=== PATIENT | male | born 1980 | race Caucasian/White ===

== ENCOUNTER → 2018-08-27 | Outpatient (CLI) | payer BC ==
--- NOTE | 2018-08-27 17:15 | RADIOLOGY IMAGING REPORT ---
FACILITY: [facility] - [place] PATIENT NAME: Marla Hawk : 1980 MR: [id number] V: [id number] EXAM DATE: ORDERING PHYSICIAN: SHRUTHI JUNE TECHNOLOGIST: Location: [facility] - [place] Patient: Marla Hawk : 1980 Visit/Account:[id number] Date of Sevice: 08/27/2018 ADDENDUM #1 Results were called to Dr. SHRUTHI JUNE on 08/27/2018 5:20 PM. Report Dictated By: Reno Stewart at 08/27/2018 5:20 PM Report E-Signed By: Reno Stewart at 08/27/2018 5:20 PM ORIGINAL REPORT ABDOMEN/PELVIS W/O CONTRAST COMPARISON: None. HISTORY: Right flank pain and hematuria with no history of kidney stones.. TECHNIQUE: Axial CT abdomen and pelvis without intravenous contrast. Coronal and sagittal reformats . One of the following dose optimization techniques was utilized in the performance of this exam: auto mated exposure control; adjustment of the mA and/or kV according to patient size; or use of iterative reconstruction technique. Specific details can be referenced in the facility's radiology CT exam op erational policy. CONTRAST: No intravenous contrast. FINDINGS: Lack of IV contrast limits assessment of the liver and other solid organs for subtle pathology. Withi n these limitations, the following observations are made: LUNG BASES: Unremarkable. LIVER: Unremarkable. BILIARY: Unremarkable gallbladder. No intra-or extrahepatic bile duct dilatat ion. SPLEEN: Unremarkable. Normal size. Homogeneous density. PANCREAS: Unremarkable. Limited assessment by noncontrast CT. No focal enlargement to suggest the p resence of a mass. No evidence of acute pancreatitis. ADRENALS: Unremarkable. KIDNEYS: There is a 2 x 3 x 3 mm mildly obstructive stone at the right ureteropelvic junction (measu ring 450 Hounsfield unit density) with mild pelvocaliectasis. There are numerous additional punctate, approximately 1 mm or less stones in the right kidney, probably 7 right total based on the coronal r eformats. At least one approximately 1 mm stone in the left kidney upper pole, nonobstructive. No lef t hydronephrosis or stones. No perinephric fluid or fat stranding. GI/MESENTERY: Unremarkable. No visible mass, obstruction, or bowel wall thickening. VASCULAR: Minimal aortic calcification. LYMPH NODES: Unremarkable. No significantly enlarged lymph nodes. BLADDER: Unremarkable. No visible focal wall thickening, appreciable lesion, or calculus. PELVIC ORGANS: Unremarkable. BONES: Unremarkable.No acute-appearing fracture or suspicious osseous lesion. OTHER: Negative. IMPRESSION: 1. Mildly obstructive 3 mm stone at the right ureteropelvic junction, with mild right pelvocaliectas is. Numerous additional punctate, 1 mm or less size nonobstructive stones in the right kidney. 2. 1 mm nonobstructive stone in the left kidney. Report Dictated By: Reno Stewart at 08/27/2018 5:02 PM Report E-Signed By: Reno Stewart at 08/27/2018 5:11 PM WSN:[id number]
== END ==
LOC: CT 16:36
PROVIDERS: ATTEND Nurse Practitioner Family
DX: N20.0 Calculus of kidney (principal); N13.2 Hydronephrosis with renal and ureteral calculous obstruction; R31.9 Hematuria, unspecified
CPT/HCPCS: 74176

== ENCOUNTER 2018-08-29 15:32 | Emergency (ER) | payer BC ==
[2018-08-29 15:42] VITALS: BP 129/88
--- NOTE | 2018-08-29 15:42 | ER Report ---
History and Physical Time Seen By MD: 15:42 HPI/ROS CHIEF COMPLAINT: Flank pain HISTORY OF PRESENT ILLNESS: This is a 38 year male who presents to the emergency department for right flank pain. Patient was seen at urgent care, and diagnosed with a kidney stone on the right side 2 days ago. Patient has had continued pain. Patient decided to come in for further evaluation as the pain on the right lower abdomen seemed to intensify. When the patient arrived he did provide us with a urine sample and suddenly had relief of all of his symptoms. Patient states he is feeling much better. There was some hematuria, we did strain the urine there was a small blood clot but no identifiable stone. Patient at this time denies fevers, chills no nausea at this time. REVIEW OF SYSTEMS: Respiratory: No cough, no dyspnea. Cardiovascular: No chest pain, no palpitations. Gastrointestinal: As above. Musculoskeletal: As above. Allergies: Coded Allergies: No Known Drug Allergies (Unverified , 08/29/18) Home Meds No Active Prescriptions or Reported Meds Past Medical/Surgical History The patient has no significant past medical or surgical history. Reviewed Nurses Notes: Yes Constitutional Vital Sign - Last 24 Hours 08/29/18 08/29/18 15:42 16:12 Temp 97.5 Pulse 83 74 Resp 24 B/P (MAP) 129/88 Pulse Ox 97 96 O2 Delivery Room Air Physical Exam General Appearance: The patient is alert, has no immediate need for airway protection and no current signs of toxicity. Eyes: Pupils equal and round no injection. Respiratory: Chest is non tender, lungs are clear to auscultation. Cardiac: regular rate and rhythm. Gastrointestinal: Abdomen is soft and non tender, no masses, bowel sounds normal . Musculoskeletal: Neck: Neck is supple and non tender.No CVA tenderness. Extremities have full range of motion and are non tender. Skin: No rashes or lesions. DIFFERENTIAL DIAGNOSIS: After history and physical exam differential diagnosis was considered for renal colic. Medical Decision Making ED Course/Re-evaluation ED Course The patient was admitted to room. A history of physical obtained. Differential diagnoses were considered. Upon arrival the patient gave us a urine sample, and immediately had relief of symptoms. We discussed this and ultimately decided to send the patient home, the patient was in agreement with the plan of care. I did recommend returning to the ER should his pain return, if pain medication at home did not help with recurrent pain or if the pain seemed different. The patient had no other questions or concerns at this time. The patient was discharged this time. Decision to Disposition Date: Aug 29, 2018 Decision to Disposition Time: 16:03 Depart Departure Latest Vital Signs Vital Signs Date Time Temp Pulse Resp B/P (MAP) Pulse Ox O2 Delivery O2 Flow Rate FiO2 08/29/18 16:12 74 96 08/29/18 15:42 97.5 24 129/88 Room Air Impression: Primary Impression: Renal colic on right side Condition: Improved Disposition: HOME OR SELF-CARE New Scripts No Active Prescriptions or Reported Meds Patient Instructions: Renal Colic (ED) Additional Instructions: With the amount of relief after providing us with a urine sample, I do believe that you have passed the stone. If the pain returns or you feel you are unable to produce and adequate amount of urine, please return to the ED for reevaluation. Drink plenty of fluids. Get plenty of rest. Follow up with your PCP next week with any other concerns. JJ WIN CIVIL DRAFTING TECHNICIAN-BC Aug 29, 2018 15:42
[2018-08-29] MEDS ORDERED: ONDA4TAB97 PO (20:42)
[2018-08-29] MEDS ORDERED: HYDR-653 PO (20:42)
[2018-08-29] MEDS ORDERED: KET10 PO (20:42)
== END 2018-08-29 16:12 | disposition home or self-care (01) ==
LOC: ER 15:41
DX: N23 Unspecified renal colic (principal)
CPT/HCPCS: 99282

== ENCOUNTER 2018-08-29 17:54 | Observation (INO) | payer BC ==
[~2018-08-29] VITALS: Ht 177.8 cm; Wt 66.2 kg
[2018-08-29] MEDS ORDERED: NS(*) 0.9% 1000 ML BAG 1,000 ML IV ONE (18:01)
[2018-08-29] MEDS ORDERED: ONDANSETRON 4 MG/2 ML VIAL IVP ONE (18:05)
[2018-08-29] MEDS ORDERED: fentaNYL CITR 100 MCG/2 ML AMP IVP ONE (18:05)
[2018-08-29 18:08] LABS: PLATELET COUNT, AUTOMATED 219 K/uL (150-450)
--- NOTE | 2018-08-29 18:16 | ER Report ---
History and Physical Time Seen By MD: 18:06 Hx. of Stated Complaint: right sided flank pain HPI/ROS CHIEF COMPLAINT: Right flank pain HISTORY OF PRESENT ILLNESS: This is a 38-year-old male who presents to the emergency department for right flank pain. The patient was seen and evaluated roughly an hour to 2 hours ago, had significant relief of his right flank pain when he was here previously, felt the kidney stone had passed, was sent home. Patient returned with increased right flank pain, severe nausea and vomiting. No dysuria. Patient has pale and holding his right side. No chest pain or shortness of breath. No rashes. No diarrhea. REVIEW OF SYSTEMS: Constitutional: No fever, no chills. Eyes: No discharge. ENT: No sore throat. Cardiovascular: No chest pain, no palpitations. Respiratory: No cough, no shortness of breath. Gastrointestinal: As above. Genitourinary: No hematuria. Musculoskeletal: As above. Skin: No rashes. Neurological: No headache. Allergies: Coded Allergies: No Known Drug Allergies (Unverified , 08/29/18) Home Meds Reported Medications Ondansetron Hcl (ZOFRAN) 4 Mg Tablet, 4 MG PO Q12H, TAB 08/29/18 Ketorolac Tromethamine (KETOROLAC TROMETHAMINE) 10 Mg Tab, 10 MG PO Q6H, TAB 08/29/18 Hydrocodone Bit/Acetaminophen (NORCO 5-325 TABLET) 1 Each Tablet, 1 EACH PO, TAB 08/29/18 Past Medical/Surgical History The patient has no significant past medical or surgical history. Reviewed Nurses Notes: Yes Hx Substance Use Disorder: No Hx Alcohol Use: No Constitutional Vital Sign - Last 24 Hours 08/29/18 08/29/18 08/29/18 08/29/18 17:58 18:00 18:15 18:45 Temp 98.7 Pulse 99 101 88 92 Resp 28 B/P (MAP) 148/101 144/91 (108) Pulse Ox 99 100 98 96 O2 Delivery Room Air Physical Exam General Appearance: The patient is alert, has no immediate need for airway protection and no signs of toxicity, pale and shaky. Eyes: Pupils equal and round no pallor or injection. ENT, Mouth: Mucous membranes are moist. Respiratory: There are no retractions, lungs are clear to auscultation. Cardiovascular: Regular rate and rhythm. Gastrointestinal: Abdomen is soft and non tender, no masses, bowel sounds normal. Neurological: Alert and oriented 4. Moving all extremities. Following all commands. No focal neuro deficits. Skin: Warm and dry, no rashes. Musculoskeletal: Neck is supple non tender. Mild right-sided CVA tenderness. Extremities are nontender, nonswollen and have full range of motion. DIFFERENTIAL DIAGNOSIS: After history and physical exam differential diagnosis was considered for urinary tract infection, pyelonephritis, kidney stone with obstruction. Medical Decision Making Data Points Result Diagram: 08/29/18180208/29/181802 Laboratory Hematology Test 08/29/18 18:03 08/29/18 19:22 Red Blood Count 5.11 M/uL (4.00-5.60) Mean Corpuscular Volume 91.1 fL (80.0-96.0) Mean Corpuscular Hemoglobin 31.2 pg (26.0-33.0) Mean Corpuscular Hemoglobin Concent 34.2 g/dL (32.0-36.0) Red Cell Distribution Width 12.1 % (11.5-14.5) Mean Platelet Volume 8.9 fL (7.2-11.1) Neutrophils (%) (Auto) 83.8 % (39.4-72.5) Lymphocytes (%) (Auto) 10.3 % (17.6-49.6) Monocytes (%) (Auto) 5.1 % (4.1-12.4) Eosinophils (%) (Auto) 0.5 % (0.4-6.7) Basophils (%) (Auto) 0.3 % (0.3-1.4) Nucleated RBC Relative Count (auto) 0.0 /100WBC Neutrophils # (Auto) 10.9 K/uL (2.0-7.4) Lymphocytes # (Auto) 1.3 K/uL (1.3-3.6) Monocytes # (Auto) 0.7 K/uL (0.3-1.0) Eosinophils # (Auto) 0.1 K/uL (0.0-0.5) Basophils # (Auto) 0.0 K/uL (0.0-0.1) Nucleated RBC Absolute Count (auto) 0.00 K/uL Sodium Level 130 mmol/L (137-145) Potassium Level 3.4 mmol/L (3.5-5.0) Chloride Level 93 mmol/L (98-107) Carbon Dioxide Level 23 mmol/L (22-30) Blood Urea Nitrogen 13 mg/dl (9-21) Creatinine 1.20 mg/dl (0.66-1.25) Glomerular Filtration Rate Calc > 60.0 Random Glucose 115 mg/dl (75-110) Calcium Level 9.5 mg/dl (8.4-10.2) Total Bilirubin 0.6 mg/dl (0.2-1.3) Aspartate Amino Transf (AST/SGOT) 26 U/L (0-35) Alanine Aminotransferase (ALT/SGPT) 35 U/L (0-56) Alkaline Phosphatase 54 U/L (0-126) Total Protein 7.5 g/dl (6.3-8.2) Albumin 4.5 g/dl (3.5-5.0) Urine Color Yellow Urine Clarity Clear Urine pH 5.0 pH (4.8-9.5) Urine Specific Loyal 1.024 Urine Protein Negative mg/dL (NEGATIVE) Urine Glucose (UA) Negative mg/dL (NEGATIVE) Urine Ketones 20 mg/dL (NEGATIVE) Urine Blood Large (NEGATIVE) Urine Nitrite Negative (NEGATIVE) Urine Bilirubin Negative (NEGATIVE) Urine Urobilinogen Negative mg/dL (0.2-1.9) Urine Leukocyte Esterase Negative (NEGATIVE) Urine RBC 11 /HPF (0-2/HPF) Urine WBC 2 /HPF (0-5/HPF) Urine Squamous Epithelial Cells None /LPF (</=FEW) Urine Bacteria Negative /HPF (NONE-FEW) Urine Mucus Few /HPF (NONE-FEW) Chemistry Test 08/29/18 18:03 08/29/18 19:22 White Blood Count 13.0 k/uL (4.5-11.0) Red Blood Count 5.11 M/uL (4.00-5.60) Hemoglobin 15.9 g/dL (14.0-18.0) Hematocrit 46.6 % (42.0-52.0) Mean Corpuscular Volume 91.1 fL (80.0-96.0) Mean Corpuscular Hemoglobin 31.2 pg (26.0-33.0) Mean Corpuscular Hemoglobin Concent 34.2 g/dL (32.0-36.0) Red Cell Distribution Width 12.1 % (11.5-14.5) Platelet Count 219 K/uL (150-450) Mean Platelet Volume 8.9 fL (7.2-11.1) Neutrophils (%) (Auto) 83.8 % (39.4-72.5) Lymphocytes (%) (Auto) 10.3 % (17.6-49.6) Monocytes (%) (Auto) 5.1 % (4.1-12.4) Eosinophils (%) (Auto) 0.5 % (0.4-6.7) Basophils (%) (Auto) 0.3 % (0.3-1.4) Nucleated RBC Relative Count (auto) 0.0 /100WBC Neutrophils # (Auto) 10.9 K/uL (2.0-7.4) Lymphocytes # (Auto) 1.3 K/uL (1.3-3.6) Monocytes # (Auto) 0.7 K/uL (0.3-1.0) Eosinophils # (Auto) 0.1 K/uL (0.0-0.5) Basophils # (Auto) 0.0 K/uL (0.0-0.1) Nucleated RBC Absolute Count (auto) 0.00 K/uL Glomerular Filtration Rate Calc > 60.0 Calcium Level 9.5 mg/dl (8.4-10.2) Total Bilirubin 0.6 mg/dl (0.2-1.3) Aspartate Amino Transf (AST/SGOT) 26 U/L (0-35) Alanine Aminotransferase (ALT/SGPT) 35 U/L (0-56) Alkaline Phosphatase 54 U/L (0-126) Total Protein 7.5 g/dl (6.3-8.2) Albumin 4.5 g/dl (3.5-5.0) Urine Color Yellow Urine Clarity Clear Urine pH 5.0 pH (4.8-9.5) Urine Specific Loyal 1.024 Urine Protein Negative mg/dL (NEGATIVE) Urine Glucose (UA) Negative mg/dL (NEGATIVE) Urine Ketones 20 mg/dL (NEGATIVE) Urine Blood Large (NEGATIVE) Urine Nitrite Negative (NEGATIVE) Urine Bilirubin Negative (NEGATIVE) Urine Urobilinogen Negative mg/dL (0.2-1.9) Urine Leukocyte Esterase Negative (NEGATIVE) Urine RBC 11 /HPF (0-2/HPF) Urine WBC 2 /HPF (0-5/HPF) Urine Squamous Epithelial Cells None /LPF (</=FEW) Urine Bacteria Negative /HPF (NONE-FEW) Urine Mucus Few /HPF (NONE-FEW) Urinalysis Test 08/29/18 19:22 Urine Color Yellow Urine Clarity Clear Urine pH 5.0 pH (4.8-9.5) Urine Specific Loyal 1.024 Urine Protein Negative mg/dL (NEGATIVE) Urine Glucose (UA) Negative mg/dL (NEGATIVE) Urine Ketones 20 mg/dL (NEGATIVE) Urine Blood Large (NEGATIVE) Urine Nitrite Negative (NEGATIVE) Urine Bilirubin Negative (NEGATIVE) Urine Urobilinogen Negative mg/dL (0.2-1.9) Urine Leukocyte Esterase Negative (NEGATIVE) Urine RBC 11 /HPF (0-2/HPF) Urine WBC 2 /HPF (0-5/HPF) Urine Squamous Epithelial Cells None /LPF (</=FEW) Urine Bacteria Negative /HPF (NONE-FEW) Urine Mucus Few /HPF (NONE-FEW) EKG/Imaging Imaging HISTORY: Evaluate for obstructing stone. TECHNIQUE: CT abdomen and pelvis without intravenous contrast. One of the following dose optimization techniques was utilized in the performance of this exam: Automated exposure control; adjustment of the mA and/or kV according to the patient's size; or use of an iterative reconstruction technique. Specific details can be referenced in the facility's radiology CT exam operational policy. CONTRAST: None. Please note, lack of IV contrast limits evaluation of solid organs. COMPARISON: CT dated August 27, 2018. FINDINGS: Visualized lung bases: Negative. Hepatobiliary: Negative. Spleen: Negative. Adrenals: Negative. Pancreas: Negative. Kidneys/: 3 mm calculus at the right UVJ with mild proximal hydroureteronephrosis. Right kidney is edematous with perinephric stranding. Punctate 1 mm nonobstructing calculus within the left kidney. Subtle hyperattenuation within the renal pelvises which may be related to dehydration however could be secondary to developing punctate renal stones. GI: Negative. Appendix is unremarkable. Vessels/spaces/nodes: Negative. Bones/soft tissues: Tiny fat-containing umbilical hernia. IMPRESSION: 1. 3 mm calculus at the right UVJ with mild proximal hydroureteronephrosis. 2. At least one additional punctate nonobstructive calculus within the left kidney. Subtle hyperattenuation within the bilateral renal pelvises which can be seen with dehydration however cannot exclude small developing renal stones. Report Dictated By: Peter Bajwa MD at 08/29/2018 6:47 PM Report E-Signed By: Peter Bajwa MD at 08/29/2018 6:51 PM [id number] ED Course/Re-evaluation Clinical Indication for ER IV: Hydration, IV Access ED Course The patient was admitted to a room. A history and physical were obtained. Differential diagnoses were considered. An IV was started. A CBC, CMP and UA were collected. Due to the intensity of the patient's pain did repeat a CT of the abdomen and pelvis concern for increased hydronephrosis, CT showing 3 mm calculus at the right UVJ with mild proximal hydroureteronephrosis, essentially unchanged from the previous CT. CBC showing white count of 13, likely stress- induced. Chemistry showing sodium 1:30, potassium 3.4. UA showing ketonuria, concentrated urine, large blood. The patient was given a 1 L normal saline bolus, 4 mg IV Zofran, 50 g IV fentanyl, 15 mg IV Toradol. Patient was also given 6.25 mg IV Phenergan. Patient having intermittent relief of his symptoms, with intermittent relief of his nausea, no vomiting since his arrival. As the patient has had continued nausea and intermittent pain, I did speak with Dr. Martínez, the urologist on-call, we discussed the case is no blow, ultimately the patient did agree to an admission to the medical floor. Patient states he just feels out of it because the medications, continues to have intermittent nausea as well as intermittent pain however he states the pain is tolerable at this time. Patient declined any other medications by IV at this time. The patient and his do understand that he is nothing by mouth at this time. Patient had no other questions or concerns at the time of admission. 08/29/2018 8:27:43 pm I did speak with Dr. Martínez, the urologist on-call, we discussed the case, he has accepted the patient into his services, the patient will be admitted to the medical surgical floor for renal colic. Decision to Disposition Date: Aug 29, 2018 Decision to Disposition Time: 20:28 Depart Departure Latest Vital Signs Vital Signs Date Time Temp Pulse Resp B/P (MAP) Pulse Ox O2 Delivery O2 Flow Rate FiO2 08/29/18 18:45 92 96 08/29/18 18:00 144/91 (108) 08/29/18 17:58 98.7 28 Room Air Impression: Primary Impression: Renal colic on right side Additional Impression: Urolithiasis Condition: Improved Disposition: Admitted from ER Problem Qualifiers Additional Impression: Urolithiasis Urinary calculus location: other lower urinary tract location Qualified Codes: N21.8 - Other lower urinary tract calculus JJ WIN-RAYO Aug 29, 2018 18:16
[2018-08-29] MEDS ORDERED: PROMETHAZINE 25 MG/ML 1 ML AMP IVP ONE ×2 (18:40→19:40)
--- NOTE | 2018-08-29 18:55 | RADIOLOGY IMAGING REPORT ---
[place] [facility] [place] Marla Hawk : 1980 MR: [id number] V: [id number] EXAM DATE: ORDERING PHYSICIAN: JJ WIN TECHNOLOGIST: Location: [facility] - [place] Patient: Marla Hawk : 1980 Visit/Account:[id number] Date of Sevice: 08/29/2018 ABDOMEN/PELVIS W/O CONTRAST HISTORY: Evaluate for obstructing stone. TECHNIQUE: CT abdomen and pelvis without intravenous contrast. One of the following dose optimization techniques was utilized in the performance of this exam: Autom ated exposure control; adjustment of the mA and/or kV according to the patient's size; or use of an i terative reconstruction technique. Specific details can be referenced in the facility's radiology C T exam operational policy. CONTRAST: None. Please note, lack of IV contrast limits evaluation of solid organs. COMPARISON: CT dated August 27, 2018. FINDINGS: Visualized lung bases: Negative. Hepatobiliary: Negative. Spleen: Negative. Adrenals: Negative. Pancreas: Negative. Kidneys/: 3 mm calculus at the right UVJ with mild proximal hydroureteronephrosis. Right kidney i s edematous with perinephric stranding. Punctate 1 mm nonobstructing calculus within the left kidney . Subtle hyperattenuation within the renal pelvises which may be related to dehydration however coul d be secondary to developing punctate renal stones. GI: Negative. Appendix is unremarkable. Vessels/spaces/nodes: Negative. Bones/soft tissues: Tiny fat-containing umbilical hernia. IMPRESSION: 1. 3 mm calculus at the right UVJ with mild proximal hydroureteronephrosis. 2. At least one additional punctate nonobstructive calculus within the left kidney. Subtle hyperatt enuation within the bilateral renal pelvises which can be seen with dehydration however cannot exclud e small developing renal stones. Report Dictated By: Peter Bajwa MD at 08/29/2018 6:47 PM Report E-Signed By: Peter Bajwa MD at 08/29/2018 6:51 PM [id number]
[2018-08-29] MEDS ORDERED: KETOROLAC 15 MG/ML VIAL IVP ONE (19:05)
[2018-08-29] MEDS: HYDROMORPHONE HCL 1 MG/ML SYRINGE IVP ONE ×2 (19:05→19:10)
[2018-08-29] MEDS ORDERED: HYDROmorphone HCL 2 MG/ML SDV IVP PRN (20:30)
[2018-08-29] MEDS ORDERED: KET10 PO (20:42)
[2018-08-29] MEDS ORDERED: HYDR-653 PO (20:42)
[2018-08-29] MEDS ORDERED: ONDA4TAB97 PO (20:42)
[2018-08-29] MEDS: DOCUSATE SODIUM 100 MG CAP PO SCH (21:00)
[2018-08-29 21:08] VITALS: BP 128/89
[2018-08-29] MEDS: LR(*) 1000 ML BAG 1,000 ML IV SCH (21:24)
[2018-08-29 23:50] VITALS: BP 127/82
[2018-08-30] MEDS: LR(*) 1000 ML BAG 1,000 ML IV SCH ×2 (01:33→05:17)
[2018-08-30 03:29] VITALS: BP 102/58
[2018-08-30] MEDS: KETOROLAC 30 MG/ML VIAL IVP SCH ×2 (06:00)
[2018-08-30 07:53] VITALS: BP 103/68
[2018-08-30] MEDS: DOCUSATE SODIUM 100 MG CAP PO SCH (08:23)
--- NOTE | 2018-08-30 09:17 | Urology Discharge Summary ---
Discharge Summary Reason for Hosp/Final Diag: (1) Urolithiasis Status: Resolved (2) Renal colic on right side Status: Acute Hospital Course & Plan: Patient admitted 08/29/2018 with severe right current right renal colic. This resolved shortly after his admission and he required no parenteral narcotic overnight he was aggressively hydrated but as of this morning has not yet passed the stone. Departure Weight (Pounds): 146 Result Diagram: 08/29/18 1803 08/30/18 0521 Condition: Improved Discharge Instructions Home Meds Reported Medications Ondansetron Hcl (ZOFRAN) 4 Mg Tablet, 4 MG PO Q12H, TAB 08/29/18 Ketorolac Tromethamine (KETOROLAC TROMETHAMINE) 10 Mg Tab, 10 MG PO Q6H, TAB 08/29/18 Hydrocodone Bit/Acetaminophen (NORCO 5-325 TABLET) 1 Each Tablet, 1 EACH PO, TAB 08/29/18 Special Instructions: Patient was instructed to strain his urine for the next 48 hours, limit his physical activity and avoid pushing lifting or straining. I gave him my personal cell phone number and told him to call me should he his pain recur. Venous Thromboembolism Antithrombotics Is Pt On Any Antithrombotics?: No Problem Qualifiers (1) Urolithiasis: Urinary calculus location: other lower urinary tract location Qualified Codes: N21.8 - Other lower urinary tract calculus PREETI GONZALEZ MD Aug 30, 2018 09:17
--- NOTE | 2018-08-30 09:21 | Urology History & Physical ---
History of Present Illness Chief Complaint Recurrent right renal colic History of Present Illness 38-year-old gentleman who has had intermittent severe right renal colic. He presented to the emergency room on 08/27 and again on 08/29. He underwent CT scan imaging which demonstrated a 3 mm stone at the right ureterovesical junction. He required parenteral narcotic to obtain pain relief in the emergency room and was admitted for hydration and pain medication as necessary History Unable To Obtain Past Medical: Home Meds Reported Medications Ondansetron Hcl (ZOFRAN) 4 Mg Tablet, 4 MG PO Q12H, TAB 08/29/18 Ketorolac Tromethamine (KETOROLAC TROMETHAMINE) 10 Mg Tab, 10 MG PO Q6H, TAB 08/29/18 Hydrocodone Bit/Acetaminophen (NORCO 5-325 TABLET) 1 Each Tablet, 1 EACH PO, TAB 08/29/18 Allergies: Coded Allergies: No Known Drug Allergies (Unverified , 08/29/18) Patient History: Patient reports no known family medical history. Hx Smoking: No Smoking Status: Never Smoker Exposure to Second Hand Smoke?: No Caffeine Intake: Soda Hx Alcohol Use: No Hx Substance Use Disorder: No Review of Systems All Systems Reviewed/Normal: Yes, Except as Noted Gastrointestinal: Nausea (right renal colic) Genitourinary: Other Exam Vital Signs Date Time Temp Pulse Resp B/P (MAP) Pulse Ox O2 Delivery O2 Flow Rate FiO2 08/30/18 10:16 98.3 77 16 112/81 (91) 95 08/30/18 08:23 Room Air General Appearance: Awake, Other (patient in acute distress secondary to right renal colic) Neuro: No Gross deficits Eyes: PERRLA ENT: Unremarkable Neck: No Masses Cardiovascular: Normal Rhythm & Peripheral Pulses Respiratory: No Respiratory Distress, Clear to Auscultation Chest: No Masses, No Tenderness GI: Abd Soft and Non-Tender : Bladder Non-palpable, No Testicular Pain/Edema, Other (moderate right CVA tenderness) Lymphatic: No Adenopathy Extremities: Soft and Non Tender Medical Decision Making Data Points Result Diagram: 08/29/18 1803 08/30/18 0521 Pre-Admit Course Medical Record Review: Yes Assessment and Plan Problems: (1) Renal colic on right side Status: Acute Assessment & Plan: Patient admitted 08/29/2018 with severe right current right renal colic. This resolved shortly after his admission and he required no parenteral narcotic overnight he was aggressively hydrated but as of this morning has not yet passed the stone. (2) Urolithiasis Status: Resolved Assessment & Plan: Assessment and plan: Admit for observation, aggressive hydration and parenteral narcotics as necessary. We'll discuss with the patient the option of ureteroscopic stone manipulation if his pain does not resolve or he does not pass the stone. Time Spent: < 30 min Venous Thromboembolism Antithrombotics Is Pt On Any Antithrombotics?: No Exam Sepsis Risk: No Definite Risk Problem Qualifiers (1) Urolithiasis: Urinary calculus location: other lower urinary tract location Qualified Codes: N21.8 - Other lower urinary tract calculus PREETI GONZALEZ MD Aug 30, 2018 09:21
--- NOTE | 2018-08-30 09:23 | Urology Progress Note ---
Subjective Patient Complains of: Neurological: No: Syncope, Confusion, Weakness, Dizziness, Slurred Speech, Other Cardiovascular: No: Chest Pain, Palpitations, Orthostatic Hypotension, Other Respiratory: No: Cough, Congestion, Shortness of Breath, Wheezing, Other Gastrointestinal: No Nausea, No Vomiting, No Flatus, No Bowel Movement, No Other Genitourinary: Other (he has had urinary frequency over the night no gross hematuria) Musculoskeletal: No: Pain, Sprain, Strain, Impaired Mobility, Other Physical Exam Vital Signs Date Time Temp Pulse Resp B/P (MAP) Pulse Ox O2 Delivery O2 Flow Rate FiO2 08/30/18 07:53 97.8 72 16 103/68 (80) 95 Room Air Intake and Output 08/30/18 07:00 Intake Total 4240 ml Output Total 5125 ml Balance -885 ml Intake Oral 1240 ml IV Total 3000 ml Output Urine Total 5125 ml General Appearance: Alert, Awake Respiratory: No Respiratory Distress GI: Soft and Non-Tender : No CVA Tenderness Result Diagram: 08/29/18 1803 08/30/18 0521 Assessment and Plan Problems: (1) Renal colic on right side Status: Acute Assessment & Plan: Patient admitted 08/29/2018 with severe right current right renal colic. This resolved shortly after his admission and he required no parenteral narcotic overnight he was aggressively hydrated but as of this morning has not yet passed the stone. We had a half hour discussion regarding the options of medical expulsive therapy versus ureteroscopic stone extraction/stent placement and at this point since he is pain free he would like to try to pass the stone spontaneously. I will discharge him this morning and I've asked him to call me to schedule a follow-up visit (2) Urolithiasis Status: Resolved Assessment & Plan: Assessment and plan: Admit for observation, aggressive hydration and parenteral narcotics as necessary. We'll discuss with the patient the option of ureteroscopic stone manipulation if his pain does not resolve or he does not pass the stone. Exam Sepsis Risk: No Definite Risk Problem Qualifiers (1) Urolithiasis: Urinary calculus location: other lower urinary tract location Qualified Codes: N21.8 - Other lower urinary tract calculus PREETI GONZALEZ MD Aug 30, 2018 09:23
[2018-08-30 10:16] VITALS: BP 112/81
[2018-08-30 11:30] VITALS: Ht 177.8 cm; Wt 66.2 kg
== END 2018-08-30 10:37 | disposition home or self-care (01) ==
LOC: ER 18:00 → MED 20:37 → INTOOBSV 20:37
PROVIDERS: ADMIT Urology; ATTEND Urology
DX: N13.2 Hydronephrosis with renal and ureteral calculous obstruction (principal); E86.0 Dehydration
CPT/HCPCS: 36415; 74176; 81001; 85025; 96361; 96374; 96375; 99283; G0378; J1885; J2405; J2550; J3010; J7030; J7120; 82040; 82247; 82310; 82374; 82435; 82565; 82947; 84075; 84132; 84155; 84295; 84450; 84460; 84520; J1170

== ENCOUNTER → 2018-08-31 | Outpatient (CLI) | payer BC ==
[2018-08-30 11:30] VITALS: BMI 20.9
[~2018-08-31] MED LIST: HYDR-653 PO; KET10 PO; ONDA4TAB97 PO
== END ==
LOC: LAB 15:31
PROVIDERS: ATTEND Urology
DX: N20.0 Calculus of kidney (principal)
CPT/HCPCS: 82365; 88300